=== PATIENT | female | born 1940 | race Caucasian/White ===

== ENCOUNTER 2023-08-19 09:32 | Inpatient (IN) | payer OTHER, SELFPAY ==
[2023-08-18 15:11] VITALS: BMI 30.9
--- NOTE | 2023-08-18 15:39 | ED.CVA ---
History of Present Illness
General
Chief Complaint: CVA/TIA Symptoms
Source: patient
Exam Limitations: none
Time Seen by Provider: 08/18/23 15:30
Onset of Stroke Symptoms
Onset of symptoms known: No
Time pt last seen normal is known: No
Travel History
Have you had any contact with someone who has COVID-19?: No
Do you have any symptoms of coronavirus? Fever > 100 degrees, chills, cough, shortness of breath, sore throat, loss of taste or smell, muscle aches, or headache?: No
History of Present Illness
History of Present Illness:
82-year-old female with history of COPD, TIA, heart failure with preserved ejection fraction presents with the onset of generalized weakness that was noticed upon waking this morning. She tried to get herself out of bed but cannot stand. She
states both legs felt weak. She denies fevers. She was here about a month ago for COPD flare versus pneumonia. She denies any increased shortness of breath or increased oxygen demand. No headache chest pain. No abdominal pain nausea or
vomiting. No other complaints at this time
Past History
Past History
ED Past Medical History: CHF, COPD, HTN, Hypercholesterolemia, Hypothyroidism and Other (Macular degeneration, Pulmonary edema)
ED Past Surgical History: Appendectomy and Gynecological
Social History
Tobacco: Smoker
Alcohol: Occasional
Drug: None
Personal:
Living: with family
Family History
Family History: CAD
Phy Exam
Physical Exam
Physical Exam:
General: Well-appearing female no acute respiratory distress
HEENT: Normocephalic atraumatic face is symmetric
Heart: Regular rate and rhythm no murmurs
Lungs: Clear to auscultation bilaterally no wheezing
Abdomen is soft nontender nondistended no guarding or rebound normal bowel sounds
Neurologic exam: Alert and oriented x 3 no drift on exam finger-nose [id number]-ia-[id number] intact.
Extremities: Mild pitting edema bilateral lower extremities skin is warm no rash or lesions
Course
Orders/Labs/Results
Orders:
Orders
08/18/23 15:40
CT Head W/o Iv Contrast Urgent
Comment:
Reason For Exam: weakness
CR Chest - 2 Views Urgent
Comment:
Reason For Exam: weakness
08/18/23 15:41
Urinalysis Reflex To Culture Urgent
08/18/23 15:44
Basic Metabolic Panel Urgent
COVID-19 Antigen Urgent
Source: Nasal Swab
Complete Blood Count/With Diff Urgent
Influenza A+B Rapid Molecular Urgent
ANNETTE Source: Nasal Swab
Specimen Description:
08/18/23 16:05
Add On- LAB Urgent
Tests Added?: bnp
08/18/23 16:27
NT-proBNP Urgent
Abnormal Lab Results
08/18/23
15:44
RDW 14.9 H %
(11.5-14.5)
MPV 11.3 H fL
(7.4-10.4)
Absolute Lymphs (auto) 0.4 L 10^3/uL
(1.2-3.4)
Absolute Monos (auto) 0.8 H 10^3/uL
(0.1-0.6)
Neutrophils % 78.6 H %
(42.2-75.2)
Lymphocytes % 6.5 L %
(20.5-51.1)
Monocytes % 13.9 H %
(1.7-9.3)
Sodium 134 L mmol/L
(135-145)
BUN 18 H mg/dl
(7-17)
SARS-CoV-2 Antigen Positive A
(Negative)
08/18/23 15:44
08/18/23 15:44
MDM/Problems Addressed
Differential Diagnosis Includes:
Generalized weakness. History of stroke. Exam not consistent with acute stroke at this point given bilateral involvement. Will obtain CT of the head. Also question possible infectious source. Will check COVID flu chest x-ray and urinalysis.
Will check for electrolyte abnormality with labs.
*Critical Care Note
Total Time (30-74mins, 75-104mins- exclusive of procedures): Not Applicable
Update Note
Update Note:
CT head negative chest x-ray shows mild pulmonary edema. Labs reviewed without significant abnormality however patient did test positive for COVID. Patient is here because she is too weak to ambulate. She lives at home and uses a walker but can
get herself out of bed this morning. Will keep patient in hospital second. Generalized weakness in the setting of COVID infection.
ED Attending Note
-
Portions of this chart may have been created with voice recognition software.� Occasional wrong word or��sound alike� substitutions may have occurred due to the inherent limitations of voice recognition software.
Discharge Plan
Departure
Patient Disposition: Admit
Date of Disposition: 08/18/23
Time of Disposition: 17:13
Admit to: Telemetry
Presentation/result/management discussed w/ accepting MD/DO: Hospitalist
Discharge Problem:
COVID-19
Prescriptions:
No Action
bumetanide 2 MG tablet
2 mg PO Q48H@0800
Patient Comments:
08/18/2023, prescribed daily according to [facility] records from 08/12/2023; however, pt. takes Q48H.
candesartan 16 MG tablet
16 mg PO DAILY
levothyroxine 100 MCG tablet
100 mcg PO DAILY
rosuvastatin 10 mg Tablet
10 mg PO QPM Qty: 30 0RF
albuterol sulfate 90 mcg/actuation Hfa Aerosol Inhaler
2 puff INHALATION R Q4HPRN PRN (Reason: sob)
Anoro Ellipta 62.5-25 mcg/actuation Blister With Device
1 inh INHALATION R DAILY
clopidogrel [Plavix] 75 mg Tablet
75 mg PO DAILY Qty: 90 0RF
Referrals:
UNKNOWN - PT DOES,NOT KNOW [Unknown Provider] -
Interventions
Interventions:
*Risk Screen - Suicide Last Done: 08/18/23 16:37
*Neglect/Abuse Screening Last Done: 08/18/23 16:37
*ED COVID-19 Vaccine History Last Done: 08/18/23 15:20
ED- Pulmonary Assessment Last Done: 08/18/23 16:37
ED- Neurological Assessment Last Done: 08/18/23 16:37
ED- Cardiac Assessment Last Done: 08/18/23 16:37
[2023-08-18 16:02] LABS: % Basophils 0.4 % (0-2); % Eosinophils 0.2 % (0-6); % Immature Granulocytes 0.4 % (0-0.5); % Lymphocytes 6.5 % (20.5-51.1); % Monocytes 13.9 % (1.7-9.3); % Neutrophils 78.6 % (42.2-75.2); Absolute Lymphocytes 0.4 10^3/uL (1.2-3.4); Absolute Monocytes 0.8 10^3/uL (0.1-0.6); Absolute Neutrophils 4.3 10^3/uL (1.4-6.5); Hematocrit 40.5 % (37.0-47.0); Hemoglobin 13.5 g/dL (12.0-16.0); Mean Corp Hgb Conc. 33.3 g/dL (33.0-37.0); Mean Corpuscular Hgb 29.5 pg (27.0-31.0); Mean Corpuscular Volume 88.4 fL (81.0-99.0); Mean Platelet Volume 11.3 fL (7.4-10.4); Nucleated Red Blood Cells % 0 %; Platelet Count 245 10^3/uL (130-400); Red Blood Cell Count 4.58 10^6/uL (4.20-5.40); Red Cell Dist. Width 14.9 % (11.5-14.5); White Blood Cell Count 5.4 10^3/uL (4.8-10.8)
[2023-08-18 16:15] LABS: COVID-19 Antigen Positive (Negative)
[2023-08-18 16:25] VITALS: BP 128/46
[2023-08-18 16:31] LABS: Blood Urea Nitrogen 18 mg/dl (7-17); Calcium 8.8 mg/dl (8.4-10.2); Carbon Dioxide 30 mmol/L (22-30); Chloride 101 mmol/L (98-107); Glucose 98 mg/dl (70-99); Sodium 134 mmol/L (135-145); eGFR > 60.00
[2023-08-18 16:54] LABS: NT-proBNP 1310 pg/ml
[2023-08-18 17:00] VITALS: BP 116/47
[2023-08-18 18:00] VITALS: BP 126/46
--- NOTE | 2023-08-18 18:14 | HPS.HSE ---
Addendum entered and electronically signed by Bonita Silvestre MD 08/18/23 18:38:
82-year-old female went out for dinner over the weekend. This morning she woke up really weak and had a cough. She was unable to walk because of the weakness so she came to the hospital where she was tested positive for COVID. Patient denies any
chest pain or any focal weakness.
On examination coughing
Cardiac system S1-S2 appreciated
Chest decreased breath sounds, constant coughing with deep breaths next abdomen soft nontender
Mild peripheral edema noted
Neuro exam is nonfocal, no facial droop
# Generalized weakness secondary to COVID-19 infection
No focal weakness noted
# COVID-19 infection
High risk for progression of illness secondary to chronic lung disease and smoking
Paxlovid, Decadron 6 mg daily
Mucinex, Acapella
# Chronic hypoxic respiratory failure secondary to COPD on 2 L of oxygen at baseline
Continue Anoro Ellipta, albuterol as needed
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
# Chronic lower extremity edema-on Bumex-Continue
# History of congestive heart failure-chronic heart failure with preserved ejection fraction
Echo 04/06/2023-mild septal hypertrophy, LV size, normal LV function. EF 55 to 60%. Diastolic function indeterminate. Mild MR, severe TR, pulmonary artery pressure of 73 mmHg, enlarged RV size and RV hypokinesis
# Essential hypertension-continue Candesartan
# Hyperlipidemia hold Crestor while on Paxlovid
# Hypothyroidism-continue Synthroid
# History of endometriosis
# Sleep apnea- CPAP intolerant.
# Obesity per BMI criteria
# Active smoker-cessation counseling
# DVT prophylaxis-Lovenox
# Full code
Called daughter and updated. Discussed that intubation may not be a good idea if it comes to that.
Original Note:
Family Physician
-
Family Physician: Vince Friedman
Chief Complaint
-
Weakness
History of Present Illness
Patient is an 82 y/o female past medical history of COPD on chronic O2, left thalamic stroke, and chronic lower extremity edema who presents with weakness. Patient states this morning she was unable to get out of bed. She feels generally tired and
weak, without focal weakness. She admits to cough that started to today which she states is productive a clear mucus. She denies fevers, sweats or chills. She denies shortness of breath or increased oxygen requirements. She tested positive for
COVID in the emergency department.
Medical History
Past Medical History
Past Medical History: Reports Other
Additional Past Medical History:
Chronic Hypoxia secondary to COPD
Left Thalamic Stroke - Mar 2023
Chronic Lower Ext Edema
Essential Hypertension
Hyperlipidemia
Hypothyroidism
Past Surgical History: Reports Gynocological
Social History
Tobacco: Smoker (/ PPD)
Alcohol: Occasional
Family History
Family History: Not pertinent
Allergies / Home Medications
Allergies reflects when Allergies were last updated in [employer]
Home Medications with original date entered in [employer]
Allergy/Medication List:
Allergies
Allergy/AdvReac Type Severity Reaction Status Date / Time
clindamycin Allergy Severe Nausea / Verified 04/08/23 17:10
Vomiting
erythromycin base Allergy Severe Nausea / Verified 04/08/23 17:10
[Erythromycin Base] Vomiting
oxycodone Allergy Severe Rash Verified 04/08/23 17:10
Penicillins Allergy Severe Shortness Verified 04/08/23 17:10
of Breath
Home Medications
bumetanide 2 mg tablet 2 mg PO Q48H@0800 Fluid retention/Swelling 01/06/14
candesartan 16 mg tablet 16 mg PO DAILY Blood pressure 08/11/19
levothyroxine 100 mcg tablet 100 mcg PO DAILY Thyroid 05/18/21
rosuvastatin 10 mg tablet 10 mg PO QPM #30 tabs 04/07/23
clopidogrel 75 mg tablet (Plavix) 75 mg PO DAILY Blood Clot Prevention/Tx #90 tabs 04/21/23
albuterol sulfate 90 mcg/actuation aerosol inhaler 2 puff inhalation R Q4HPRN PRN sob 08/18/23
umeclidinium 62.5 mcg-vilanterol 25 mcg/actuation powdr for inhalation (Anoro Ellipta) 1 inh inhalation R DAILY 08/18/23
Review of Systems
-
A 12 point ROS was completed and negative except as noted: Yes
Constitutional: Denies Fever or Chills
Respiratory: Reports Cough; Denies Trouble Breathing
Cardiac: Denies Chest Pain or Palpitations
Abdomen/GI: Denies Nausea or Diarrhea
Physical Exam
Vital Signs
Vital Signs
Pulse Resp BP Pulse Ox
73 16 116/47 95
08/18/23 17:00 08/18/23 17:00 08/18/23 17:00 08/18/23 17:00
Physical Exam
General: No Apparent Distress, Comfortable and Conversant
HEENT: Moist mucous membranes and Oxygen (Nasal Cannula)
Respiratory: Clear and Non Labored Respirations; No Wheezes
Cardiac: S1/S2 and Regular Rhythm
GI: Soft and Non Tender
Rectal: Deferred by Provider
Musculoskeletal: No Clubbing, No Cyanosis and Other (Trace/+1 edema bilateral lower ext)
Skin: Warm and Dry
Neuro: Awake, Alert, Oriented and Nonfocal/grossly intact
Laboratory Results
-
08/18/23 15:44
08/18/23 15:44
Laboratory Results
Total Bilirubin Cancelled 08/18/23 15:44
AST Cancelled 08/18/23 15:44
ALT Cancelled 08/18/23 15:44
Alkaline Phosphatase Cancelled 08/18/23 15:44
Data Reviewed
-
Lab Data: Labs Reviewed by me
Impression/Plan
-
Weakness secondary to COVID-19
-Patient at high risk for progression of illness in setting of chronic lung disease therefore start Paxlovid
-Start Decadron 6mg Daily
-Continue Mucinex
-Encourage use of incentive spirometer and Acapella device
Chronic Hypoxia secondary to COPD
-Patient at baseline oxygen requirement - 2L NC
-Continue Anoro Ellipta
-Continue albuterol HFA prn
Left Thalamic Stroke - Mar 2023
-Continue Plavix
Chronic Lower Ext Edema
-Continue Bumex
Essential Hypertension
-Continue Candesartan
Hyperlipidemia
-Hold Crestor while on Paxlovid
Hypothyroidism
-Continue levothyroxine
DVT proph: Lovenox
Code Status: Full Code
[2023-08-18 19:00] VITALS: BP 114/52
[2023-08-18 19:57] VITALS: BP 128/53
--- NOTE | 2023-08-18 20:03 | PTCARENOTE ---
pt arrived onto unit on 2L of O2 and tele, pt was able to walk from stretcher at bedside to bed, with an assist x2. Pt lives at home with her daughter and uses a RW to get around at home. call barrera in reach will continue to monitor
[2023-08-18] MEDS: TYLENOL 650 MG PO (20:16)
[2023-08-18] MEDS: PAXLOVID 2X150 MG-100 MG DOSE PACK 1 DOSE PO (20:16)
[2023-08-18] MEDS: MUCINEX 600 MG PO (20:16)
[2023-08-18] MEDS: DECADRON 6 MG IV (20:17)
[2023-08-18 20:38] LABS: Procalcitonin < 0.05 ng/ml (0.0-0.25)
[2023-08-18 23:19] VITALS: BP 131/53
[2023-08-19] VITALS (8 sets, daily range): BP systolic 101–143; BP diastolic 55–69; PULSE 67; O2SAT 93
--- NOTE | 2023-08-19 03:09 | PTCARENOTE ---
at 0245 RN and I was able to get pt up out of bed to standing scale, pt is currently resting in bed, call barrera is in reach, will continue to monitor.
--- NOTE | 2023-08-19 03:20 | PTCARENOTE ---
O2 increased from 2L to 3L to maintain oxygen saturation above 92%
[2023-08-19 04:33] LABS: Hematocrit 41.6 % (37.0-47.0); Hemoglobin 13.4 g/dL (12.0-16.0); Mean Corp Hgb Conc. 32.2 g/dL (33.0-37.0); Mean Corpuscular Hgb 29.1 pg (27.0-31.0); Mean Corpuscular Volume 90.2 fL (81.0-99.0); Mean Platelet Volume 11.6 fL (7.4-10.4); Platelet Count 216 10^3/uL (130-400); Red Blood Cell Count 4.61 10^6/uL (4.20-5.40); Red Cell Dist. Width 14.7 % (11.5-14.5); White Blood Cell Count 2.6 10^3/uL (4.8-10.8)
[2023-08-19 05:15] LABS: Blood Urea Nitrogen 22 mg/dl (7-17); Calcium 8.6 mg/dl (8.4-10.2); Carbon Dioxide 30 mmol/L (22-30); Chloride 102 mmol/L (98-107); Estimated Creatinine Clearance 51 ml/min; Glucose 144 mg/dl (70-99); Magnesium 2.2 mg/dl (1.6-2.3); Potassium 4.5 mmol/L (3.5-5.1); Sodium 136 mmol/L (135-145); eGFR > 60.00
[2023-08-19] MEDS: SYNTHROID 100 MCG PO (06:11)
[2023-08-19] MEDS: SPIRIVA RESPIMAT 2.5 MCG 2 PUFF INH (08:47)
[2023-08-19] MEDS: STRIVERDI RESPIMAT 2 PUFF INH (08:47)
--- NOTE | 2023-08-19 08:49 | VNURNOTE ---
Patient is current with [facility] since 07/17 w/SN, will monitor progress and plan at discharge.
[2023-08-19 08:57] LABS: Urine Albumin Trace (Neg - Trace); Urine Bilirubin 1+ (Negative); Urine Character Slightly Cloudy (Clear); Urine Color Yellow; Urine Glucose Negative (Negative); Urine Ketone 1+ (Negative); Urine Leukocyte Trace (Negative); Urine Nitrite Negative (Negative); Urine Occult Blood Negative (Negative); Urine Urobilinogen Negative (Neg - 1+)
[2023-08-19] MEDS: BUMEX 2 MG PO (08:58)
[2023-08-19] MEDS: PLAVIX 75 MG PO (08:59)
[2023-08-19] MEDS: MUCINEX 600 MG PO ×2 (08:59→20:02)
[2023-08-19] MEDS: ATACAND 16 MG PO (08:59)
[2023-08-19] MEDS: PAXLOVID 2X150 MG-100 MG DOSE PACK 1 DOSE PO ×2 (09:06→20:04)
[2023-08-19 09:14] LABS: Urine Mucus Few; Urine Squamous Cell >30 /LPF (Few)
[2023-08-19 09:16] LABS: Urine Bacteria Few (Negative); Urine Red Blood Cell 0-2 /HPF (0-2)
--- NOTE | 2023-08-19 10:17 | PTOTSP ---
ST Swallowing Evaluation
Pt presents with fairly functional oropharyngeal parameters. Pt had one instance of cough with thin liquids via straw which could not be differentiated from baseline cough vs exacerbated cough from COVID-19. Do not suspect pt's current
respiratory/pulmonary status is 2/2 aspiration at this time, as CT chest is not definitive for PNA and pt has an acute COVID-19 dx. However, will continue to follow for comprehensiveness.
Recommendations:
- Continue with REGULAR SOLIDS and THIN LIQUIDS; meds as tolerated.
- General aspiration precautions.
- HOSPICE ADMITTING CLERK to follow for diet tolerance and to determine if VFSS is warranted.
--- NOTE | 2023-08-19 11:37 | W.PN.HOSP.TC ---
Addendum entered and electronically signed by Bonita Silvestre MD 08/19/23 11:41:
Patient looks and feels a lot better today.
Original Note:
Today's Communication/Plan
-
Continue steroids and Paxlovid
PT OT
If has yellow sputum , will start AB. Hold off now.
Possible discharge tomorrow if stable.
Assessment / Plan
Assessment / Plan
Cardiac system S1-S2 appreciated
Chest decreased breath sounds, CTA
Mild peripheral edema noted
Neuro exam is nonfocal, no facial droop
# Generalized weakness secondary to COVID-19 infection
No focal weakness noted
# COVID-19 infection
High risk for progression of illness secondary to chronic lung disease and smoking
Paxlovid, Decadron 6 mg daily
Mucinex, Acapella
# Chronic hypoxic respiratory failure secondary to COPD on 2 L of oxygen at baseline
Continue Anoro Ellipta, albuterol as needed
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
# Chronic lower extremity edema-on Bumex-Continue
# History of congestive heart failure-chronic heart failure with preserved ejection fraction
Echo 04/06/2023-mild septal hypertrophy, LV size, normal LV function.� EF 55 to 60%.� Diastolic function indeterminate.� Mild MR, severe TR, pulmonary artery pressure of 73 mmHg, enlarged RV size and RV hypokinesis
Continue Bumex daily until she finishes steroids. Steroids can cause fluid retention
# Essential hypertension-continue Candesartan
# Hyperlipidemia hold Crestor while on Paxlovid
# Hypothyroidism-continue Synthroid
# History of endometriosis
# Sleep apnea- CPAP intolerant.
# Obesity per BMI criteria
# Active smoker-cessation counseling
# DVT prophylaxis-Lovenox
# Full code
PT OT
Discussed with nursing
Anticipated Discharge: Within 24 hours
Subjective/Interval History
-
Date of Service: August 19, 2023
Objective Data
-
Labs:
Laboratory Results
08/19/23
03:49
WBC 2.6 L
Hgb 13.4
Hct 41.6
Plt Count 216
Sodium 136
Potassium 4.5
Chloride 102
Carbon Dioxide 30
BUN 22 H
Creatinine 0.8
Glucose 144 H
Calcium 8.6
Vital Signs:
Vital Signs
Temp Pulse Resp BP Pulse Ox
97.5 F 67 16 127/69 97
08/19/23 07:30 08/19/23 08:59 08/19/23 08:57 08/19/23 08:59 08/19/23 08:57
--- NOTE | 2023-08-19 12:21 | CM ---
Addendum entered by Stephanie Juares RN 08/19/23 14:07:
Left voice message with daughter regarding [facility] letter. Letter placed on patient's chart. Patient is Covid +.
Original Note:
Reviewed the chart notes and left voice message for the patient's daughter. The patient was recently discharged to home with [facility] (07/16/23). The patient resides with her daughter in a one story home with one step to enter. The patient has home
O2, rolling walker, shower chair, toilet rails, and a wheelchair. The patient has not been to a SNF in the past. CM continues to be available to patient/family and is monitoring medical plan for needs at discharge.
Plan: Discharge plans will depend on the patient's progress.
--- NOTE | 2023-08-19 14:44 | PTOTSP ---
Pt is at functional baseline. PT will sign off.
[2023-08-19] MEDS: LOVENOX 40 MG SC (17:39)
[2023-08-19] MEDS: DECADRON 6 MG IV (20:02)
[2023-08-20 03:36] VITALS: BP 170/64
[2023-08-20 06:00] VITALS: BMI 29.6
[2023-08-20] MEDS: SYNTHROID 100 MCG PO (06:18)
[2023-08-20 07:10] VITALS: BP 138/39
[2023-08-20] MEDS: SPIRIVA RESPIMAT 2.5 MCG 2 PUFF INH (07:56)
[2023-08-20] MEDS: STRIVERDI RESPIMAT 2 PUFF INH (07:56)
[2023-08-20] MEDS: BUMEX 2 MG PO (08:46)
[2023-08-20] MEDS: ATACAND 16 MG PO (08:47)
[2023-08-20] MEDS: MUCINEX 600 MG PO (08:47)
[2023-08-20] MEDS: PLAVIX 75 MG PO (08:47)
--- NOTE | 2023-08-20 09:08 | W.PN.HOSP.TC ---
Addendum entered and electronically signed by Bonita Silvestre MD 08/20/23 16:16:
Acute on chronic heart failure with ejection fraction
Addendum entered and electronically signed by Bonita Silvestre MD 08/20/23 09:31:
Called Daughter Henrry left message
Original Note:
Today's Communication/Plan
-
BMP
Cards eval
Assessment / Plan
Assessment / Plan
Cardiac system S1-S2 appreciated
Chest decreased breath sounds, CTA
No peripheral edema noted
Neuro exam is nonfocal, no facial droop
# Generalized weakness secondary to COVID-19 infection
No focal weakness noted
# COVID-19 infection
High risk for progression of illness secondary to chronic lung disease and smoking
Paxlovid, Decadron 6 mg daily
Mucinex, Acapella
On 2 L Oxygen now
Home O2 eval
# Chronic hypoxic respiratory failure secondary to COPD on 2 L of oxygen at baseline
Continue Anoro Ellipta, albuterol as needed
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
# Chronic lower extremity edema-on Bumex-Continue
# History of congestive heart failure-chronic heart failure with preserved ejection fraction
CXR ? acute element
Cards eval.
Echo 04/06/2023-mild septal hypertrophy, LV size, normal LV function.� EF 55 to 60%.� Diastolic function indeterminate.� Mild MR, severe TR, pulmonary artery pressure of 73 mmHg, enlarged RV size and RV hypokinesis
Continue Bumex . Steroids can cause fluid retention
# Essential hypertension-continue Candesartan
# Hyperlipidemia hold Crestor while on Paxlovid
# Hypothyroidism-continue Synthroid
# History of endometriosis
# Sleep apnea- CPAP intolerant.
# Obesity per BMI criteria
# Active smoker-cessation counseling
# DVT prophylaxis-Lovenox
# Full code
PT OT
Discussed with nursing at bed side.
Anticipated Discharge: Within 24 hours
Subjective/Interval History
-
Date of Service: August 20, 2023
Objective Data
-
Labs:
Laboratory Results
08/20/23
09:07
Sodium Pending
Potassium Pending
Chloride Pending
Carbon Dioxide Pending
BUN Pending
Creatinine Pending
Glucose Pending
Calcium Pending
Vital Signs:
Vital Signs
Temp Pulse Resp BP Pulse Ox
99.1 F 52 16 135/39 93
08/20/23 07:10 08/20/23 08:46 08/20/23 08:07 08/20/23 08:46 08/20/23 08:07
I&O
08/19/23 08/20/23 08/21/23
06:59 06:59 06:59
Intake Total 1620 / 1620
Balance 1620 / 1620
[2023-08-20] MEDS: PAXLOVID 2X150 MG-100 MG DOSE PACK 1 DOSE PO (09:36)
[2023-08-20] MEDS: PROTONIX 40 MG PO (09:37)
[2023-08-20 10:30] LABS: Blood Urea Nitrogen 26 mg/dl (7-17); Calcium 8.6 mg/dl (8.4-10.2); Carbon Dioxide 29 mmol/L (22-30); Chloride 101 mmol/L (98-107); Estimated Creatinine Clearance 58 ml/min; Glucose 126 mg/dl (70-99); Potassium 3.9 mmol/L (3.5-5.1); Sodium 134 mmol/L (135-145); eGFR > 60.00
[2023-08-20 10:37] VITALS: O2SAT 92; O2SAT 94
[2023-08-20 11:05] VITALS: BP 128/49
--- NOTE | 2023-08-20 12:12 | CM ---
Addendum entered by Stephanie Juares RN 08/20/23 15:42:
IMM signed and placed on the chart.
Original Note:
Reviewed the chart notes. Per PT, no skill need at this time. Patient ambulating at baseline with O2. Anticipate discharge to home with no additional needs being identified at this time. CM continues to be available to patient/family and is
monitoring medical plan for needs at discharge.
Plan: Discharge to home when medically stable. No needs.
--- NOTE | 2023-08-20 13:32 | CON.CAR ---
Addendum entered and electronically signed by May Chambers DO 08/20/23 15:25:
I saw and examined the patient.
The Bumper Straightener's note was reviewed and I agree with the note.
Comment: Patient is an 82-year-old female with past medical history of pulmonary hypertension chronically on 2 to 3 L supplemental oxygen continuously, hypertension, hyperlipidemia, hypothyroidism, history of bradycardia and PVCs who presented to
[facility] due to complaints of weakness.� She tested positive for COVID.� She denies all other complaints at this time.� She states her weight has been stable at approximately 170 pounds on 2 mg of Bumex p.o. daily.� She denies worsening
orthopnea, stating she is at her baseline 2 pillows at night.� She denies lower extremity edema, although states she has been told that her legs appear swollen.� proBNP 1310.� Chest x-ray with evidence of mild pulmonary edema.� She is eager for
discharge.� Cardiology consulted for evaluation.
General: No acute distress, AAOX3. nc O2 2 lpm (baseline)
Heart: Regular, positive S1/S2, No murmur
Lungs: bronchovesicular BS no wheeze. No crackles
Abd: Positive BS, NT/ND, neg rebound/rigidity/guarding
Ext: no edema
Plan:
-Patient presents with weakness and tested positive for COVID.�
-Feels better now on home nc O2
-Currently receiving Paxlovid.
�
-Hx of HFpEF with concern for mild volume overload
-She denies orthopnea, weight gain, shortness of breath, LE edema.� Reports dry weight approximately 170 pounds, without significant changes as outpatient. proBNP lower than previous admission for CHF (4470 --> 1310)
-Will give 1mg Bumex now and continue outpatient Bumex 2 mg p.o. daily.
-no need to repeat echocardiogram
Will arrange outpatient cardiac follow up
Ok from cardiac standpoint for D/C when medically stable
Will sign off, recall if needed
Original Note:
Consultation
Consultation Request
Date/Time Consultation Performed: 08/13/23
Requesting Provider: Dr. Silvestre
Performing Provider: Blanche Escobar PA-C for Dr. Chambers
Reason for Consultation: concern for CHF
Medical History
-
Chief Complaint: weakness
History of Present Illness:
Patient is an 82-year-old female with past medical history of pulmonary hypertension chronically on 2 to 3 L supplemental oxygen continuously, hypertension, hyperlipidemia, hypothyroidism, history of bradycardia and PVCs who presented to [place]
[facility] due to complaints of weakness. She tested positive for COVID. She denies all other complaints at this time. She states her weight has been stable at approximately 170 pounds on 2 mg of Bumex p.o. daily. She denies worsening orthopnea,
stating she is at her baseline 2 pillows at night. She denies lower extremity edema, although states she has been told that her legs appear swollen. proBNP 1310. Chest x-ray with evidence of mild pulmonary edema. She is eager for discharge.
Cardiology consulted for evaluation.
PMH:
Pulmonary Hypertension
Chronic hypoxic respiratory failure, on 2L NC continuous
Chronic HFpEF
HTN
HLD
hypothyroidism
History of bradycardia
History of PVCs
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
COPD/emphysema
Tobacco use
Past Medical History
Past Medical History: Other (in HPI)
Social History
Tobacco: Smoker
Living: With Family
Employment: Retired
Family History
Family History: Reviewed & Not Pertinent
Allergies / Home Medications
Allergy/AdvReac Type Severity Reaction Status Date / Time
clindamycin Allergy Severe Nausea / Verified 04/08/23 17:10
Vomiting
erythromycin base Allergy Severe Nausea / Verified 04/08/23 17:10
[Erythromycin Base] Vomiting
oxycodone Allergy Severe Rash Verified 04/08/23 17:10
Penicillins Allergy Severe Shortness Verified 04/08/23 17:10
of Breath
Medication Instructions Recorded Confirmed Type
bumetanide 2 mg tablet 2 mg PO Q48H@0800 Fluid 01/06/14 08/18/23 History
retention/Swelling
candesartan 16 mg tablet 16 mg PO DAILY Blood pressure 08/11/19 08/18/23 History
levothyroxine 100 mcg tablet 100 mcg PO DAILY Thyroid 05/18/21 08/18/23 History
clopidogrel 75 mg tablet (Plavix) 75 mg PO DAILY Blood Clot 04/21/23 08/18/23 Rx
Prevention/Tx #90 tabs
albuterol sulfate 90 mcg/actuation 2 puff inhalation R Q4HPRN PRN sob 08/18/23 08/18/23 History
aerosol inhaler
umeclidinium 62.5 mcg-vilanterol 1 inh inhalation R DAILY 08/18/23 08/18/23 History
25 mcg/actuation powdr for Lung/Breathing Issues
inhalation (Anoro Ellipta)
rosuvastatin 10 mg tablet 10 mg PO QPM High Cholesterol 08/19/23 08/18/23 History
Review of Systems
-
History Source: Patient
All other systems: Negative unless noted
Physical Exam
Vital Signs
Temp Pulse Resp BP Pulse Ox
98.0 F 54 16 128/49 96
08/20/23 11:05 08/20/23 11:05 08/20/23 11:05 08/20/23 11:05 08/20/23 11:05
Lab Results
08/19/23 03:49
08/20/23 09:57
Gnn-A-Yykdpgjtuis Pept 1310 pg/ml 08/18/23 16:27
Impression / Plan
-
Primary Coloring Room Worker: Dr. Chambers
Assessment:
Presentation with weakness
Covid +, on paxlovid
Concern for acute CHF
Pulmonary Hypertension
Chronic hypoxic respiratory failure, on 2L NC continuous
Chronic HFpEF
HTN
HLD
hypothyroidism
History of bradycardia
History of PVCs
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
COPD/emphysema
Tobacco use
ECHO 03/2023: EF 55 to 60%, mild septal hypertrophy, mild MR, aortic sclerosis, severe TR, PAP 73 mmHg, mildly dilated RA, enlarged RV, RV hypokinesis
Plan:
-Patient presents with weakness and tested positive for COVID. Currently receiving Paxlovid. Cardiology consulted due to concern for acute CHF.
-CXR evidence of 'mild CHF.'
-She denies orthopnea, weight gain, shortness of breath, LE edema. Reports dry weight approximately 170 pounds, without significant changes as outpatient. proBNP lower than previous admission for CHF (4470 --> 1310)
-She states she has been compliant with outpatient Bumex 2 mg p.o. daily. would consider for additional dose of bumex today
-On baseline supplemental oxygen 2 L via nasal cannula
-Recent echo with results as above
-Review of telemetry sinus rhythm/sinus bradycardia with occasional PVCs
-she is eager for DC
-will arrange OP cardiac follow up
Data Reviewed
-
EKG: Tracing Personally Visualized and interpreted
Radiology: Image Personally Visualized and interpreted and Report Reviewed by me
Medical Tests (Nuc Med, Echo etc): Report Reviewed by me
Labs: Labs Reviewed by me
Old Records: Reviewed
[2023-08-20 15:05] VITALS: BP 155/61
[2023-08-20] MEDS: BUMEX 1 MG PO (16:08)
--- NOTE | 2023-08-20 16:15 | W.PN.UPDATE ---
Update Note
Progress Note Update
Came back to floor
Discussed with daughter at bedside
Discussed with nursing
Discussed cardiology. Okay for discharge with Bumex daily.
Prescription for BMP given
Prescription sent to pharmacy
Total discharge coordination time 37 minutes.
--- NOTE | 2023-08-20 16:15 | W.DS.TRANS ---
Addendum entered and electronically signed by Bonita Silvestre MD 08/20/23 17:08:
Dictation- [id number]
Original Note:
DC Summary - Employment Instructional Associate
-
Discharge Instructions:
Discharge Diagnosis/Procedures COVID-19 infection, COPD, history of stroke, CHF
, hypertension, high cholesterol, hypothyroidism
, endometriosis, sleep apnea
Diet Restrict fluids to 48 oz,2 Gram Sodium
Activity As tolerated
Driving Restrictions As prior to admission
Blood Work BMP 1 week
Others Tests Chest x-ray 4 to 6 weeks
Other Services VN
Specialty Instructions Weigh Daily
Instructions:
Stand-Alone Forms:
Changes to Home Medications: Yes
Discharge Medications:
DC Medications w/original date entered in [employer]
candesartan 16 mg tablet 16 mg PO DAILY Blood pressure 08/11/19
levothyroxine 100 mcg tablet 100 mcg PO DAILY Thyroid 05/18/21
clopidogrel 75 mg tablet (Plavix) 75 mg PO DAILY Blood Clot Prevention/Tx #90 tabs 04/21/23
albuterol sulfate 90 mcg/actuation aerosol inhaler 2 puff inhalation R Q4HPRN PRN sob 08/18/23
umeclidinium 62.5 mcg-vilanterol 25 mcg/actuation powdr for inhalation (Anoro Ellipta) 1 inh inhalation R DAILY Lung/Breathing Issues 08/18/23
rosuvastatin 10 mg tablet 10 mg PO QPM High Cholesterol 08/19/23
bumetanide 2 mg tablet 2 mg PO DAILY Fluid retention/Swelling #30 tabs 08/20/23
dexamethasone 6 mg tablet 6 mg PO DAILY covid #7 tabs 08/20/23
guaifenesin 600 mg tablet, extended release 12 hr 600 mg PO Q12 Lung/breathing issues #10 tabs 08/20/23
nirmatrelvir 300 mg (150 mg x2)-ritonavir 100 mg tablet,dose pack (Paxlovid) 1 ea PO BID covid #30 ea 08/20/23
pantoprazole 40 mg tablet,delayed release 40 mg PO DAILY Gastrointestinal issue #8 tabs 08/20/23
Home Medication Changes
new
dexamethasone 6 mg tablet 6 mg PO DAILY covid #7 tabs 08/20/23
guaifenesin 600 mg tablet, extended release 12 hr 600 mg PO Q12 Lung/breathing issues #10 tabs 08/20/23
nirmatrelvir 300 mg (150 mg x2)-ritonavir 100 mg tablet,dose pack (Paxlovid) 1 ea PO BID covid #30 ea 08/20/23
pantoprazole 40 mg tablet,delayed release 40 mg PO DAILY Gastrointestinal issue #8 tabs 08/20/23
Dose change- Bumex
Pending Results: No
== END 2023-08-20 18:07 | disposition home or self-care (01) | DRG 177 ==
LOC: 2 NORTH 09:32
PROVIDERS: Physician Assistant; Physician Assistant Medical; ADMITTING PHYSICIAN Hospitalist; CONSULT PHYSICIAN Internal Medicine Cardiovascular Disease; EMERGENCY PHYSICIAN Emergency Medicine; FAMILY PHYSICIAN Internal Medicine
DX: U07.1 COVID-19 (principal); I50.33 Acute on chronic diastolic (congestive) heart failure; J96.11 Chronic respiratory failure with hypoxia; J43.9 Emphysema, unspecified; I11.0 Hypertensive heart disease with heart failure; E03.9 Hypothyroidism, unspecified; E78.00 Pure hypercholesterolemia, unspecified; H35.30 Unspecified macular degeneration; F17.210 Nicotine dependence, cigarettes, uncomplicated; I08.3 Combined rheumatic disorders of mitral, aortic and tricuspid valves; N80.9 Endometriosis, unspecified; G47.30 Sleep apnea, unspecified; I27.20 Pulmonary hypertension, unspecified; E66.9 Obesity, unspecified; Z99.81 Dependence on supplemental oxygen; Z86.73 Personal history of transient ischemic attack (TIA), and cerebral infarction without residual deficits; Z79.890 Hormone replacement therapy; Z79.51 Long term (current) use of inhaled steroids; Z79.02 Long term (current) use of antithrombotics/antiplatelets; Z68.29 Body mass index [BMI] 29.0-29.9, adult; Z88.1 Allergy status to other antibiotic agents; Z88.5 Allergy status to narcotic agent; Z88.0 Allergy status to penicillin
CPT/HCPCS: 70450; 71046; 80048; 81003; 81015; 83735; 83880; 84145; 85025; 85027; 87502; 87811; 92610; 93005; 94640; 94761; 97162; 97165; 99285

== ENCOUNTER → 2023-10-08 15:29 | Outpatient (REF) | payer OTHER, SELFPAY | LOC: RAD 15:29 | PROVIDERS: ATTENDING PHYSICIAN Internal Medicine | DX: Z09 Encounter for follow-up examination after completed treatment for conditions other than malignant neoplasm (principal); Z86.16 Personal history of COVID-19; I50.9 Heart failure, unspecified; J44.9 Chronic obstructive pulmonary disease, unspecified | CPT/HCPCS: 71046 ==

== ENCOUNTER → 2025-06-05 09:59 | Outpatient (REF) | payer OTHER, SELFPAY | LOC: WDC 09:59 | PROVIDERS: ATTENDING PHYSICIAN Internal Medicine | DX: N60.02 Solitary cyst of left breast (principal) | CPT/HCPCS: 76642; 77062; 77066 ==